=== PATIENT | male | born 1975 | race Caucasian/White ===

== ENCOUNTER 2017-09-30 05:26 | Day surgery (SDC) | payer OTHER ==
[2017-09-22 12:59] VITALS: BMI 38.0
[~2017-09-30] VITALS: Ht 177.8 cm; Wt 122.1 kg
[2017-09-30] MEDS ORDERED: LACTATED RINGER'S 1000ML 1,000 ML IV SCH (06:00)
[2017-09-30 06:24] VITALS: BP 157/77; PULSE 57; TEMP 37; O2SAT 96; Ht 177.8 cm; Wt 122.1 kg
--- NOTE | 2017-09-30 06:29 | History & Physical Bridge Note ---
H&P Re-Evaluation Bridge Note: I have examined the patient, reviewed the History & Physical and in the interval since the performance of the History & Physical I have noted the following changes of clinical significance: No changes noted
[2017-09-30] MEDS ORDERED: MIDAZOLAM HCL 1 MG/ML 2ML VIAL ONE (06:35)
[2017-09-30] MEDS ORDERED: PROPOFOL IV EMULSION 10 MG/ML 20 ML VIAL IV ONE (06:35)
[2017-09-30] MEDS ORDERED: ONDANSETRON INJ 2 MG/ML 2 ML VIAL ONE (06:35)
[2017-09-30] MEDS ORDERED: SUCCINYLCHOLINE CHLORIDE 20 MG/ML 10 ML VIAL IV ONE ×2 (06:35→07:49)
[2017-09-30] MEDS ORDERED: FENTANYL CITRATE INJ 50 MCG/1 ML 2 ML VIAL ONE ×2 (06:35→07:25)
[2017-09-30] MEDS ORDERED: DEXAMETHASONE SOD INJ 4 MG/ML VIAL ONE (06:35)
[2017-09-30] MEDS ORDERED: LIDOCAINE HCL 2% 2 ML VIAL (20MG/ML) ONE (06:35)
[2017-09-30] MEDS ORDERED: LIDOCAINE/EPINEPHRINE 1% 20 ML VIAL ONE (07:01)
[2017-09-30] MEDS ORDERED: ESMOLOL HCL 10 MG/ML 10 ML VIAL ONE (07:33)
[2017-09-30] MEDS ORDERED: EpINEphrine HCL INJ 1 MG/ML 5ML SYRINGE ONE (07:35)
[2017-09-30] MEDS ORDERED: GLYCOPYRROLATE INJ 0.2 MG/ML VIAL ONE (07:49)
[2017-09-30] MEDS ORDERED: ROCURONIUM BROMIDE 10 MG/ML 5 ML VIAL IV ONE ×2 (07:49)
[2017-09-30] MEDS ORDERED: NEOSTIGMINE METHYLSULFATE 5 MG/5 ML SYR ONE (07:49)
--- NOTE | 2017-09-30 08:28 | [facility] Operative Report ---
Operative Report Operative Date Sep 30, 2017. Pre-Operative Diagnosis Right vocal fold lesion, hoarseness. Post-Operative Diagnosis Same as preop. Procedure(s) Performed Direct Microlaryngoscopy with Biopsy of Right True Vocal Fold lesion Surgeon Dr. Mueller Manager Of Customer Billing Surgeon(s) None. Estimated Blood Loss 10 ML Findings 1. EXOPHYTIC MASS INVOLVING ANTERIOR 2/3 OF THE RIGHT TRUE VOCAL FOLD AND ANTERIOR COMMISSURE 2. 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 I attest to the content of the Intraoperative Record and any orders documented therein. Any exceptions are noted below.
[2017-09-30] MEDS ORDERED: ACETAMINOPHEN/HYDROCODONE ELIX 15 ML/CUP UDP PO PRN (08:30)
[2017-09-30] MEDS ORDERED: ATROPINE SULFATE 0.1 MG/ML 5ML SYR IV PRN (08:30)
[2017-09-30] MEDS ORDERED: FENTANYL CITRATE INJ 50 MCG/1 ML 2 ML VIAL IV PRN (08:30)
[2017-09-30] MEDS ORDERED: MEPERIDINE HCL 25 MG/ML CARP IV PRN (08:30)
[2017-09-30] MEDS ORDERED: LABETALOL HCL IV 5 MG/ML 20ML IV PRN (08:30)
[2017-09-30] MEDS ORDERED: ONDANSETRON INJ 2 MG/ML 2 ML VIAL IV PRN ×2 (08:30)
[2017-09-30] MEDS ORDERED: HYDROmorphone INJ 1 MG/ML SYR IV PRN (08:30)
[2017-09-30] MEDS ORDERED: EpHEDrine SULFATE INJ 50 MG/ML AMP IV PRN (08:30)
--- NOTE | 2017-09-30 08:30 | Discharge Instructions ---
Discharge Instructions Date of Service Sep 30, 2017. Admission Reason for Admission: Lesion Of Vocal Fold Discharge Discharge Diagnosis / Problem: SAME Discharge Goals Goal(s): Diagnostic testing Activity Recommendations Activity Limitations: as noted below ABSOLUTE VOICE REST FOR 3 DAYS . Current Hospital Diet Patient's current hospital diet: Regular Diet Discharge Diet Recommended Diet: Regular Diet Procedures Procedures Performed: Direct Microlaryngoscopy with Biopsy of Right True Vocal Fold lesion Pending Studies Studies pending at discharge: no Medical Emergencies . Who to Call and When: Medical Emergencies: If at any time you feel your situation is an emergency, please call 911 immediately. . Non-Emergent Contact Non-Emergency issues call your: Surgeon . . "Provider Documentation" section prepared by Philip Mueller. . VTE Core Measure Inpt VTE Proph given/why not?: SCD's
--- NOTE | 2017-09-30 08:47 | OPERATIVE REPORT ---
DATE OF OPERATION: 09/30/2017 PREOPERATIVE DIAGNOSIS: Right true vocal fold lesion. POSTOPERATIVE DIAGNOSIS: Right true vocal fold lesion. PROCEDURE: Direct microlaryngoscopy with biopsies of right true vocal fold. SURGEON: Dr. Mueller. ANESTHESIA: General endotracheal. ESTIMATED BLOOD LOSS: 10 mL FINDINGS: 1. Exophytic mass involving the right true vocal fold and anterior commissure. 2. Atypical squamous epithelium with possible infiltrative carcinoma on frozen section diagnosis for which they are deferring to permanent pathological specimens. COMPLICATIONS: None. INDICATIONS FOR THE PROCEDURE: The patient is a 42-year-old male with a [id number] smoking history, who quit smoking cigarettes but continues to chew tobacco and swallows his saliva, who has had a several-month history of progressive hoarseness. He was found on fiberoptic laryngoscopy in the office to have a bulky exophytic mass involving the anterior two-thirds of the right true vocal fold and possibly the anterior commissure. I recommended direct microlaryngoscopy with biopsy. He presents for the above-mentioned procedure on an outpatient elective basis. DETAILS OF PROCEDURE: After informed consent had been obtained from the patient, the patient was wheeled to the operating room and placed on the operating room table in supine position. Monitors were placed after induction of general endotracheal anesthesia with a size 6 endotracheal tube, the table was turned 90 degrees and a tooth guard was placed over the maxillary dentition. The operating microscope was used to inspect the oral cavity, oropharynx, hypopharynx and larynx. Of note, the exposure was somewhat difficult due to his prominent dentition as well as a mildly anterior larynx. The Lewy cortez was attached to the laryngoscope and was suspended from the Yousif stand. A 0-degree bear telescope was used to visualize the larynx under high powered magnification and photodocumentation of the lesion was obtained. Significant amount of anterior cricoid pressure was necessary to visualize the lesion. Straight and up cup forceps were then used to take multiple pieces of the exophytic mass and sent for frozen and permanent pathological assessment. Care was taken to preserve as much normal vocal fold mucosa as possible. A "debulking" of the mass was undertaken though to provide an improved airway as well as to perhaps improve his voice. 1:1000 topical epinephrine pledget was then placed over the larynx. The laryngoscope was then carefully withdrawn. Frozen section diagnosis was called back in and stated that there was atypical squamous epithelium with concern about infiltrative carcinoma but they could not confirm or deny carcinoma and are going to defer to permanent pathological specimens. Therefore, I made the decision to reinsert the laryngoscope and noted that the endotracheal tube had inadvertently come out of his larynx. The patient was bag masked with oral airway in place and a new 6 endotracheal tube was placed using a GlideScope. Using the GlideScope, it could be seen that there was some mild mass still involving the anterior commissure. Once again, a tooth guard was placed over the maxillary dentition and the operating microscope was inserted and used to inspect the larynx. The Lewy cortez was attached and suspended from the Robbins stand. Up cup forceps was used to take biopsies of the anterior commissure region, that was noted using the GlideScope. These were sent for permanent pathological assessment. There was no more abnormal mucosa, and therefore, enough biopsies were taken. Again, topical 1:1000 epinephrine pledget was placed over the larynx, and after allowing adequate time for hemostasis, the pledget was removed. An LTA was then administered. The laryngoscope was then carefully withdrawn. The maxillary tooth guard was removed. The oral cavity and oropharynx were suctioned. This marked the end of the case. The patient tolerated the procedure well and there were no apparent complications. All the instrumentation was removed from the patient. The patient was extubated and transferred to recovery room in stable condition. I attest to the content of the Intraoperative Record and any orders documented therein. Any exception s are noted below.
[2017-09-30 09:20] VITALS: BP 130/78; PULSE 63; O2SAT 93
--- NOTE | 2017-09-30 09:31 | Anesthesiology Progress Note ---
Anesthesia Post Op Note Date & Time Sep 30, 2017 at 09:31 Vital Signs Pain Intensity: 2 Vital Signs Past 12 Hours Date Time Temp Pulse Resp B/P (MAP) Pulse Ox O2 Delivery O2 Flow Rate FiO2 09/30/17 09:14 62 12 93 09/30/17 09:14 63 12 09/30/17 09:10 121/87 09/30/17 09:09 63 11 09/30/17 09:09 65 11 100 09/30/17 09:07 36.3 61 16 121/87 (94) 97 Oxymask 2 09/30/17 09:06 119/84 09/30/17 09:04 62 12 09/30/17 09:04 62 12 98 09/30/17 09:00 137/91 09/30/17 08:59 84 15 100 09/30/17 08:59 78 15 09/30/17 08:58 63 12 09/30/17 08:58 63 12 100 09/30/17 08:56 115/74 09/30/17 08:53 66 11 98 09/30/17 08:53 68 11 09/30/17 08:51 131/80 09/30/17 08:48 68 10 100 09/30/17 08:48 68 10 09/30/17 08:46 131/87 09/30/17 08:43 75 12 100 09/30/17 08:43 76 12 09/30/17 08:41 155/88 09/30/17 08:38 96 14 100 09/30/17 08:38 96 14 09/30/17 08:38 36.0 87 12 155/88 100 Oxymask 10 09/30/17 06:24 37.0 57 18 157/77 (103) 96 Room Air Notes Mental Status: alert / awake / arousable, participated in evaluation Pt Amnestic to Procedure: Yes Nausea / Vomiting: adequately controlled Pain: adequately controlled Airway Patency, RR, SpO2: stable & adequate BP & HR: stable & adequate Hydration State: stable & adequate Anesthetic Complications: no major complications apparent
[2017-09-30 09:50] VITALS: BP 130/78; PULSE 68; TEMP 36.7; O2SAT 95
[2017-09-30 10:20] VITALS: BP 137/81; PULSE 64; TEMP 36.5; O2SAT 97
== END 2017-09-30 10:20 | disposition home or self-care (01) ==
LOC: C.ACU 05:26
DX: J38.3 Other diseases of vocal cords (principal); R49.0 Dysphonia; Z87.891 Personal history of nicotine dependence

== ENCOUNTER 2018-01-21 08:53 | Emergency (ER) | payer OTHER ==
[~2018-01-21] VITALS: Ht 177.8 cm; Wt 122.5 kg
[~2018-01-21 08:53] MED LIST: HYDR-3126 PO; MECL1TAB42 PO
[2018-01-21 08:57] VITALS: TEMP 37.7; Ht 177.8 cm; Wt 122.5 kg
[2018-01-21] MEDS ORDERED: OXYC1CAP5 PO (09:14)
[2018-01-21] MEDS ORDERED: IBUP-1277 PO (09:14)
[2018-01-21] MEDS ORDERED: DRGTP12 TOP (09:14)
[2018-01-21] MEDS ORDERED: SODIUM CHLORIDE 0.9% 1000ML 1,000 ML IV STA (09:37)
--- NOTE | 2018-01-21 09:40 | EMERGENCY ROOM VISIT NOTE ---
History Report prepared by Jing: Sanjiv Krueger Under the Supervision of: Dr. Jesse Woodard M.D. First contact with patient: 09:31 Chief Complaint: THROAT PAIN/INJURY Stated Complaint: OTHER History of Present Illness The patient is a 43 year old male who presents to the Emergency Room with complaints of worsening swallowing difficulties that started 2 days ago. The patient is currently receiving radiation treatments for throat cancer. Per the patient's , the patient has not been able to eat for 2 days, and has not been able to drink much at all. The patient states that it hurts to talk. The patient was seen at Dr. Felix's office (radiation oncology) this morning and was scoped due to the patient's symptoms, and he was sent here due to concern about his airway, and the amount of swelling in his throat. There was concern about dehydration. Per the patient's , the patient has not been sleeping well at all recently. His last radiation treatment was yesterday morning. Source of History: patient, spouse/significant other Onset: 2 days ago Position: throat Symptom Intensity: can't eat and can hardly drink Quality: other (swallowing difficulties) Timing: worsening Note: Associated symptoms: Pain with swallowing. Swelling in throat. Not sleeping well. Review of Systems See HPI for pertinent positives & negatives. A total of 10 systems reviewed and were otherwise negative. Past Medical & Surgical Medical Problems: (1) Throat cancer Family History No pertinent family history Social History Smoking Status: Former Smoker Drug Use: none Marital Status: Housing Status: lives with roommate Current/Historical Medications Scheduled Fentanyl (Fentanyl), 12 MCG TOP Q3DAYS Meclizine Hcl (Meclizine Hcl), 1 TAB PO DIRECTED Scheduled PRN Hydroxyzine Hcl (Atarax), 1 TAB PO HS PRN for Sleep Ibuprofen (Advil), 200-600 MG PO Q4H PRN for Pain Oxycodone Hcl (Oxycodone Hcl), 5 MG PO Q4 PRN for Pain Allergies Coded Allergies: Tramadol (Verified Allergy, Unknown, RESP. DEPRESSION, 01/21/18) Physical Exam Vital Signs Date Time Temp Pulse Resp B/P (MAP) Pulse Ox O2 Delivery O2 Flow Rate FiO2 01/21/18 13:13 84 20 145/111 97 01/21/18 12:09 78 18 141/71 99 Room Air 01/21/18 11:54 79 01/21/18 11:33 78 20 167/102 98 Room Air 01/21/18 11:32 97 Room Air 01/21/18 10:59 85 18 149/86 99 Room Air 01/21/18 10:12 74 18 144/96 95 Room Air 01/21/18 08:57 37.7 74 18 173/106 98 Room Air 01/21/18 08:57 97 Room Air 01/21/18 08:57 99 Room Air Physical Exam GENERAL: Awake, alert, well-appearing, in no acute distress, has hot potato voice. HENT: Normocephalic, atraumatic. Unable to swallow own saliva. EYES: Normal conjunctiva. Sclera non-icteric. NECK: Supple. No nuchal rigidity. FROM. No JVD. RESPIRATORY: Clear to auscultation. No stridor on exam. CARDIAC: Regular rate, normal rhythm. Extremities warm and well perfused. Pulses equal. ABDOMEN: Soft, non-distended. No tenderness to palpation. No rebound or guarding. No masses. RECTAL: Deferred. MUSCULOSKELETAL: Chest examination reveals no tenderness. The back is symmetrical on inspection without obvious abnormality. There is no CVA tenderness to palpation. No joint edema. LOWER EXTREMITIES: Calves are equal size bilaterally and non-tender. No edema. No discoloration. NEURO: Normal sensorium. No sensory or motor deficits noted. SKIN: No rash or jaundice noted. Medical Decision & Procedures ER Provider Diagnostic Interpretation: Radiology results as stated below per my review and radiologist interpretation: CHEST ONE VIEW PORTABLE HISTORY: Sepsis COMPARISON: None. FINDINGS: The lungs are clear. Cardiac silhouette is normal in size. No pleural effusions. No pneumothorax. IMPRESSION: No acute process. Electronically signed by: Man Lynn M.D. 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 Several small polyps of the maxillary sinuses. Mastoids are clear. The oral and hypopharyngeal airways are patent. There are findings of mild edematous change of the epiglottis extending inferiorly to the glottic and vocal cord regions. At the level of the hyoid bone there is considerable heterogeneously enhancing soft tissue in the region of the vocal cords. The airway shows a high degree of narrowing. This may in part be due to the patient's stage of phonating, although radiation edematous change versus neoplastic change must be considered. Regardless, the airway is severely compromised. There are no erosive changes or destructive changes of the cartilaginous structures of the soft tissue neck. Subglottic region appears to be widely patent. There are several small reactive nodes cervical chains bilaterally. Bulky adenopathy is not appreciated. The region of soft tissue edematous or pathologic change in cross-section measures 3.1 x 2.7 cm. IMPRESSION: 1. Abnormal soft tissue and/or post radiation edematous change creating near occlusion of the airway at the level of the focal cords extending superiorly to the base of the epiglottis. 2. 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 3. Several small reactive cervical nodes bilaterally although bulky adenopathy is not appreciated. 4. The subglottic airway is patent. 5. Patient should be monitored closely for potential acute occlusion of the airway. This report was phoned to the emergency room The above report was generated using voice recognition software. It may contain grammatical, syntax or spelling errors. Electronically signed by: Miki Villalobos M.D. 01/21/2018 10:55 AM Dictated Date/Time: 01/21/2018 10:44 AM Laboratory Results 01/21/18 10:00 Red Blood Count 5.00, Mean Corpuscular Volume 88.0, Mean Corpuscular Hemoglobin 30.8, Mean Corpuscular Hemoglobin Concent 35.0, Mean Platelet Volume 9.9, Neutrophils (%) (Auto) 85.6, Lymphocytes (%) (Auto) 6.5, Monocytes (%) (Auto) 6.6, Eosinophils (%) (Auto) 0.9, Basophils (%) (Auto) 0.2, Neutrophils # (Auto) 9.86, Lymphocytes # (Auto) 0.75, Monocytes # (Auto) 0.76, Eosinophils # (Auto) 0.10, Basophils # (Auto) 0.02 01/21/18 09:21 Test 01/21/18 09:21 01/21/18 09:31 01/21/18 09:51 01/21/18 10:00 Anion Gap 5.0 mmol/L (3-11) Est Creatinine Clear Calc Drug Dose 110.0 ml/min Estimated GFR () 90.2 Estimated GFR (Non- 77.8 BUN/Creatinine Ratio 13.7 (10-20) Calcium Level 9.0 mg/dl (8.5-10.1) Total Bilirubin 0.6 mg/dl (0.2-1) Aspartate Amino Transf (AST/SGOT) 23 U/L (15-37) Alanine Aminotransferase (ALT/SGPT) 44 U/L (12-78) Alkaline Phosphatase 101 U/L (45-117) Total Creatine Kinase 66 U/L (39-308) Creatine Kinase MB < 0.5 ng/ml (0.5-3.6) Troponin I < 0.015 ng/ml (0-0.045) Total Protein 8.1 gm/dl (6.4-8.2) Albumin 3.9 gm/dl (3.4-5.0) Globulin 4.2 gm/dl (2.5-4.0) Albumin/Globulin Ratio 0.9 (0.9-2) Chemistry Specimen Hemolysis Creatine Kinase MB Ratio (0-3.0) Bedside Lactic Acid Venous 1.14 mmol/L (0.90-1.70) White Blood Count 11.51 K/uL (4.8-10.8) Red Blood Count 5.00 M/uL (4.7-6.1) Hemoglobin 15.4 g/dL (14.0-18.0) Hematocrit 44.0 % (42-52) Mean Corpuscular Volume 88.0 fL (80-100) Mean Corpuscular Hemoglobin 30.8 pg (25-34) Mean Corpuscular Hemoglobin Concent 35.0 g/dl (32-36) Platelet Count 271 K/uL (130-400) Mean Platelet Volume 9.9 fL (7.4-10.4) Neutrophils (%) (Auto) 85.6 % Lymphocytes (%) (Auto) 6.5 % Monocytes (%) (Auto) 6.6 % Eosinophils (%) (Auto) 0.9 % Basophils (%) (Auto) 0.2 % Neutrophils # (Auto) 9.86 K/uL (1.4-6.5) Lymphocytes # (Auto) 0.75 K/uL (1.2-3.4) Monocytes # (Auto) 0.76 K/uL (0.11-0.59) Eosinophils # (Auto) 0.10 K/uL (0-0.5) Basophils # (Auto) 0.02 K/uL (0-0.2) RDW Standard Deviation 42.3 fL (36.4-46.3) RDW Coefficient of Variation 13.2 % (11.5-14.5) Immature Granulocyte % (Auto) 0.2 % Immature Granulocyte # (Auto) 0.02 K/uL (0.00-0.02) Prothrombin Time 10.6 SECONDS (9.0-12.0) Prothromb Time International Ratio 1.0 (0.9-1.1) Activated Partial Thromboplast Time 25.9 SECONDS (21.0-31.0) Partial Thromboplastin Ratio 1.0 Test 01/21/18 11:15 Urine Color YELLOW Urine Appearance CLEAR (CLEAR) Urine pH 8.0 (4.5-7.5) Urine Specific Letcher > 1.045 (1.000-1.030) Urine Protein NEG (NEG) Urine Glucose (UA) NEG (NEG) Urine Ketones TRACE (NEG) Urine Occult Blood NEG (NEG) Urine Nitrite NEG (NEG) Urine Bilirubin NEG (NEG) Urine Urobilinogen NEG (NEG) Urine Leukocyte Esterase NEG (NEG) Urine WBC (Auto) 0 /hpf (0-5) Urine RBC (Auto) 0-4 /hpf (0-4) Urine Hyaline Casts (Auto) 0 /lpf (0-5) Urine Epithelial Cells (Auto) 0-5 /lpf (0-5) Urine Bacteria (Auto) NEG (NEG) Labs reviewed by ED physician. Medications Administered Medications (Trade) Dose Ordered Sig/Angie Route Start Time Stop Time Status Last Admin Dose Admin Sodium Chloride 1,000 ml @ 999 mls/hr Q1H1M STAT IV 01/21/18 09:37 01/21/18 10:37 DC 01/21/18 10:00 999 MLS/HR Dexamethasone Sodium Phosphate (Dexamethasone Inj Pf) 10 mg STK-MED ONCE .ROUTE 01/21/18 11:09 01/21/18 11:10 DC 01/21/18 11:16 10 MG ECG Per My Interpretation Indication: other (cancer history, sepsis) Rate (beats per minute): 81 Rhythm: normal sinus Findings: other (no st elevation or depression, normal axis) ED Course 0932: Past medical records reviewed. The patient was evaluated in room A3. A complete history and physical examination was performed. 0937: NSS 1000 ml @ 999 mls/hr IV. 1057: Dexamethasone Sodium Phosphate 10mg/Syringe 2.5 ml @ 1 mls/min IV. 1058: I discussed the patient with - [facility] [place] anesthesia. 1115: I discussed the patient with Dr. Candelaria Hutson arturo ENT - he will come to evaluate the patient. 1117: I discussed the patient with Dr. Kamar Hutson [facility] electrical/instrument technician. 1253: Upon reexamination the patient is resting. Dr. Gaona just came in and scoped the patient. I discussed results and treatment plan with the patient. The patient verbalizes agreement and understanding. The patient is ready for discharge. Medical Decision Differential diagnosis: Etiologies such as sepsis, UTI, pneumonia, metabolic, electrolyte abnormalities , cardiac sources, intracerebral event, toxicologic, neurologic, as well as others were entertained. This is a 43-year-old male who presents the emergency department complaining of difficulty breathing. The patient feels his throat was closing off. He is currently being treated with radiation for a laryngeal mass. An IV was established and the patient was sent for CAT scan of the neck. Based on the CAT scan he was given 10 of Decadron IV. I did discuss the case with the on- call ear nose throat doctor who was kind enough to come in and see the patient. He was also discussed with anesthesia. After the Decadron the patient was markedly improved in his symptoms and we feel that he can be safely discharged home however I stressed the need to return if his symptoms worsen. The patient was also written for Medrol Dosepak by his oncologist which he is going to continue at home. Patient and are in agreement with the treatment plan. Medication Reconcilliation Current Medication List: was personally reviewed by me Blood Pressure Screening Patient's blood pressure: Elevated blood pressure Blood pressure disposition: Referred to PCP Consults Time Called: 1055 Consulting Physician: Dr. Luis CADE anesthesia Returned Call: 1058 I discussed the patient with Dr. Luis CADE anesthesia. Additional Consults: Time Called: 1113 Consulted Physician: Dr. Candelaria Lau ENT Returned Call: 1115 Additional Comments: I discussed the patient with Dr. Candelaria Lau ENT - he will come to evaluate the patient. Time Called: 1113 Consulted Physician: Dr. Kamar OBNADO electrical/instrument technician Returned Call: 1117 Additional Comments: I discussed the patient with Dr. Kamar OBANDO electrical/instrument technician. Impression Primary Impression: Laryngeal mass Scribe Attestation The scribe's documentation has been prepared under my direction and personally reviewed by me in its entirety. I confirm that the note above accurately reflects all work, treatment, procedures, and medical decision making performed by me. Departure Information Dispostion Home / Self-Care Referrals No Doctor, Assigned (PCP) Philip Mueller, Precious Madrid, Mildred Holland M.D. Forms HOME CARE DOCUMENTATION FORM, IMPORTANT VISIT INFORMATION, WORK / SCHOOL INSTRUCTIONS Patient Instructions My [facility] Additional Instructions Follow up with DR Mueller's office Follow up with DR Felix's office Return if you are unable to breathe or swallow You have been examined and treated today on an emergency basis only. This is not a substitute for, or an effort to provide, complete comprehensive medical care. It is impossible to recognize and treat all injuries or illnesses in a single emergency department visit. It is therefore important that you follow up closely with Dr Velez. Call as soon as possible for an appointment. Thank you for your time and consideration. I look forward to speaking with you again soon. Please don't hesitate to call us if you have any questions.
[2018-01-21] MEDS ORDERED: OPTIRAY 320 IV PRN (09:45)
[2018-01-21 10:00] LABS: ALBUMIN 3.9 gm/dl (3.4-5.0); ALT/SGPT 44 U/L (12-78); BLOOD UREA NITROGEN 16 mg/dl (7-18); CARBON DIOXIDE 29 mmol/L (21-32); CREATININE 1.16 mg/dl (0.60-1.40); GLUCOSE 93 mg/dl (70-99); POTASSIUM 4.5 mmol/L (3.5-5.1); SODIUM 136 mmol/L (136-145)
[2018-01-21 10:03] LABS: ALKALINE PHOSPHATASE 101 U/L (45-117); AST/SGOT 23 U/L (15-37); CKMB < 0.5 ng/ml (0.5-3.6); TOTAL PROTEIN 8.1 gm/dl (6.4-8.2)
--- NOTE | 2018-01-21 10:03 | DIAGNOSTIC IMAGING REPORT ---
CHEST ONE VIEW PORTABLE HISTORY: Sepsis COMPARISON: None. FINDINGS: The lungs are clear. Cardiac silhouette is normal in size. No pleural effusions. No pneumothorax. IMPRESSION: No acute process. Electronically signed by: Man Lynn M.D. 01/21/2018 10:02 AM Dictated Date/Time: 01/21/2018 9:58 AM
[2018-01-21 10:08] LABS: BASO % 0.2 %; BASO ABS # 0.02 K/uL (0-0.2); EOS % 0.9 %; HEMOGLOBIN 15.4 g/dL (14.0-18.0); IG# 0.02 K/uL (0.00-0.02); LYMPH % 6.5 %; LYMPH ABS # 0.75 K/uL (1.2-3.4); MEAN CORPUSCULAR HEMOGLOBIN 30.8 pg (25-34); MEAN PLATELET VOLUME 9.9 fL (7.4-10.4); MONO % 6.6 %; MONO ABS # 0.76 K/uL (0.11-0.59); NEUT % 85.6 %; NEUT ABS # 9.86 K/uL (1.4-6.5); PLATELET COUNT 271 K/uL (130-400); RED CELL DISTRIBUTION WIDTH CV 13.2 % (11.5-14.5); RED CELL DISTRIBUTION WIDTH SD 42.3 fL (36.4-46.3); WHITE BLOOD COUNT 11.51 K/uL (4.8-10.8)
[2018-01-21 10:22] LABS: PTT PATIENT 25.9 SECONDS (21.0-31.0)
--- NOTE | 2018-01-21 10:56 | DIAGNOSTIC IMAGING REPORT ---
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 Several small polyps of the maxillary sinuses. Mastoids are clear. The oral and hypopharyngeal airways are patent. There are findings of mild edematous change of the epiglottis extending inferiorly to the glottic and vocal cord regions. At the level of the hyoid bone there is considerable heterogeneously enhancing soft tissue in the region of the vocal cords. The airway shows a high degree of narrowing. This may in part be due to the patient's stage of phonating, although radiation edematous change versus neoplastic change must be considered. Regardless, the airway is severely compromised. There are no erosive changes or destructive changes of the cartilaginous structures of the soft tissue neck. Subglottic region appears to be widely patent. There are several small reactive nodes cervical chains bilaterally. Bulky adenopathy is not appreciated. The region of soft tissue edematous or pathologic change in cross-section measures 3.1 x 2.7 cm. IMPRESSION: 1. Abnormal soft tissue and/or post radiation edematous change creating near occlusion of the airway at the level of the focal cords extending superiorly to the base of the epiglottis. 2. 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 3. Several small reactive cervical nodes bilaterally although bulky adenopathy is not appreciated. 4. The subglottic airway is patent. 5. Patient should be monitored closely for potential acute occlusion of the airway. This report was phoned to the emergency room The above report was generated using voice recognition software. It may contain grammatical, syntax or spelling errors. Electronically signed by: Miki Villalobos M.D. 01/21/2018 10:55 AM Dictated Date/Time: 01/21/2018 10:44 AM
[2018-01-21] MEDS ORDERED: DEXAMETHASONE INJ 10 MG in SYRINGE 0 ML IV STA (10:57)
[2018-01-21] MEDS ORDERED: DEXAMETHASONE **PF** INJ 10 MG/ML VIAL ONE (11:09)
[2018-01-21 11:32] VITALS: O2SAT 97
[2018-01-21 13:13] VITALS: BP 145/111; PULSE 84; O2SAT 97
--- NOTE | 2018-01-21 15:44 | ENT CONSULTATION ---
DATE OF CONSULTATION: 01/21/2018 PERSON REQUESTING CONSULTATION: Emergency Department physician, Dr. Woodard. INDICATION: Airway compromise with difficulty swallowing. HISTORY OF PRESENT ILLNESS: This is a 43-year-old man who has undergone 13 radiation treatments for laryngeal carcinoma diagnosed by Dr. Philip Mueller. Over the last few days, the patient had noticed increased difficulty in swallowing and today presented to the Emergency Department with difficulty talking and a little bit more difficulty breathing. He was assessed by Dr. Woodard and was given Decadron. This was provided after he had a CT scan of the neck, which showed massive edema primarily involving the false vocal cords and the supraglottic larynx with minimal involvement of the epiglottis. I reviewed the images and the radiologist's report, and I concur. I interviewed the patient in module A1 and his was present. Both the patient and his said he was doing much better, 2 hours after the Decadron was given by Dr. Woodard. Dr. Woodard was also present when I was talking to the patient, and Dr. Woodard described that his breathing and speaking were dramatically improved. The main reason I was called was to assess his airway to see if there was any need for emergent airway intervention versus admission for observation versus an opinion on whether or not the patient would do well as a continued outpatient. As far as past medical history and review of systems: they are all well documented in the Emergency Department note. I will not contribute to chart rupesh. In general, the patient was breathing without difficulty. There was no stridor. I used the flexible laryngoscope through the right nostril. He has a severely deviated septum to the left side. There were no abnormalities of the nasopharynx or the oropharynx. He had minimal edema of the false cord on the left side. He had full vocal cord mobility. I was able to see down about 5 tracheal rings and there was no obstruction of the subglottis. He had adequate glottic chink. ASSESSMENT AND PLAN: This patient has had an unfortunate amount of edema during his radiation therapy for treatment of laryngeal carcinoma. This is not uncommon. He will probably require a radiation holiday for several sessions. I will leave this up to radiation therapy. I conveyed this recommendation to Dr. Woodard. I also assured that the patient could safely go home on a [employer]. There was an opportunity for questions and answers. MTDD
== END 2018-01-21 13:15 | disposition home or self-care (01) ==
LOC: EDBD 08:53 → C.EDA 08:54
DX: C32.9 Malignant neoplasm of larynx, unspecified (principal); J34.2 Deviated nasal septum; Z87.891 Personal history of nicotine dependence; Z88.5 Allergy status to narcotic agent

== ENCOUNTER 2018-02-21 14:23 | Emergency (ER) | payer OTHER ==
[~2018-02-21] VITALS: Ht 177.8 cm; Wt 125.0 kg
[~2018-02-21 14:23] MED LIST changes: +DRGTP25 TOP; +IBUP-1277 PO; +OXYC1CAP5 PO; +PRED10TA PO
[2018-02-21 14:26] VITALS: Ht 177.8 cm; Wt 125.0 kg
[2018-02-21 14:38] VITALS: O2SAT 98
[2018-02-21] MEDS ORDERED: DEXAMETHASONE SOD INJ 4 MG/ML VIAL IV STA (15:00)
[2018-02-21] MEDS ORDERED: SODIUM CHLORIDE 0.9% 500ML 500 ML IV STA (15:00)
[2018-02-21] MEDS ORDERED: LORAZEPAM INJ 1 MG in SYRINGE 0.5 ML IV STA (15:13)
[2018-02-21] MEDS ORDERED: RACEPINEPHRINE 2.25% NEBU SOLN 0.5 ML VIAL INH STA (15:13)
[2018-02-21] MEDS ORDERED: LORAZEPAM 2 MG/ML 1 ML VIAL ONE (15:18)
[2018-02-21 15:41] LABS: BASO % 0.1 %; BASO ABS # 0.01 K/uL (0-0.2); EOS % 0.6 %; EOS ABS # 0.08 K/uL (0-0.5); HEMATOCRIT 43.8 % (42-52); HEMOGLOBIN 14.6 g/dL (14.0-18.0); IG# 0.07 K/uL (0.00-0.02); LYMPH % 2.4 %; LYMPH ABS # 0.32 K/uL (1.2-3.4); MEAN CORPUSCULAR HEMOGLOBIN 29.7 pg (25-34); MEAN CORPUSCULAR HGB CONC 33.3 g/dl (32-36); MEAN PLATELET VOLUME 9.6 fL (7.4-10.4); MONO ABS # 0.94 K/uL (0.11-0.59); NEUT % 89.4 %; NEUT ABS # 12.07 K/uL (1.4-6.5); PLATELET COUNT 263 K/uL (130-400); RED CELL DISTRIBUTION WIDTH CV 14.3 % (11.5-14.5); RED CELL DISTRIBUTION WIDTH SD 46.6 fL (36.4-46.3); WHITE BLOOD COUNT 13.49 K/uL (4.8-10.8)
--- NOTE | 2018-02-21 15:55 | DIAGNOSTIC IMAGING REPORT ---
CHEST 1 VW FRONT-NOT PORTABLE CLINICAL HISTORY: Difficulty breathing. Shortness of breath. COMPARISON STUDY: 01/21/2018 FINDINGS: The cardiac and mediastinal contours are normal. There is no evidence of focal pulmonary consolidation. There is no evidence of failure. No pleural effusions are visualized.[ IMPRESSION: No active disease in the chest. Electronically signed by: Andrei Osorio M.D. 02/21/2018 3:54 PM Dictated Date/Time: 02/21/2018 3:54 PM
--- NOTE | 2018-02-21 15:55 | DIAGNOSTIC IMAGING REPORT ---
SOFT TISSUE NECK CLINICAL HISTORY: Difficulty breathing. History of laryngeal radiation. COMPARISON STUDY: CT scan dated 01/21/2018 FINDINGS: No epiglottic abnormalities are visualized. The retropharyngeal soft tissues are the upper limits of normal in thickness. The airway appears patent. IMPRESSION: 1. No conventional radiographic evidence of significant airway narrowing 2. Normal appearing epiglottis Electronically signed by: Andrei Osorio M.D. 02/21/2018 3:53 PM Dictated Date/Time: 02/21/2018 3:51 PM
--- NOTE | 2018-02-21 16:15 | EMERGENCY ROOM VISIT NOTE ---
History First contact with patient: 14:45 Chief Complaint: RESPIRATORY PROBLEMS Stated Complaint: NUMBNESS, TROUBLE BREATHING Nursing Triage Summary: c/o SOB and not feeling right pt being tx for throat cancer and recieved radiation no resp distress pt stated he had something similar and had to take a break from radiation History of Present Illness The patient is a 43 year old male who presents to the Emergency Room with complaints of shortness of breath and feeling like his airway was closing that started this morning. The patient is undergoing radiation for laryngeal cancer. He had his last treatment 3 days ago. He complains of moderate discomfort in his throat. No pain in his chest. He is feeling sweaty and anxious. The patient typically takes prednisone 10 mg 3 times daily. He took an extra one this morning hoping that it would help with his symptoms. He did not see any improvement. He denies any leg or calf pain. Review of Systems 10 system review performed and negative unless noted in HPI or below Past Medical/Surgical History Medical Problems: (1) Throat cancer Family History No pertinent family history Social History Smoking Status: Former Smoker Drug Use: none Marital Status: Housing Status: lives with roommate Current/Historical Medications Scheduled Guaifenesin/Dextromethorphan (Robitussin-Dm Syrup), 5 ML PO Q6H Prednisone Tab (Prednisone), 10 MG PO TID Scheduled PRN Fentanyl (Fentanyl), 25 MCG TOP [id number] PRN for Severe Pain Hydroxyzine Hcl (Atarax), 50 MG PO HS PRN for Sleep Ibuprofen (Advil), 200-600 MG PO Q4H PRN for Pain Meclizine Hcl (Meclizine Hcl), 25 MG PO UD PRN for Dizziness or Vertigo Oxycodone Hcl (Oxycodone Hcl), 5 MG PO Q4H PRN for Pain Physical Exam Vital Signs Date Time Temp Pulse Resp B/P (MAP) Pulse Ox O2 Delivery O2 Flow Rate FiO2 02/21/18 19:31 71 20 145/78 96 02/21/18 18:35 67 24 154/92 98 Room Air 02/21/18 18:15 72 20 157/90 95 Room Air 02/21/18 17:41 69 02/21/18 17:30 68 24 178/92 97 Room Air 02/21/18 16:23 72 16 95 Room Air 02/21/18 16:15 73 19 183/90 93 Room Air 02/21/18 14:38 98 02/21/18 14:26 36.8 68 18 197/118 98 Physical Exam VITALS: Vitals are noted on the nurse's note and reviewed by myself. Vital signs stable. GENERAL: 43-year-old male, mildly anxious and sweaty and appears, SKIN: The skin was moist HEAD: Normocephalic atraumatic. EARS: External auditory canals clear, tympanic membranes pearly baca without erythema or effusion bilaterally. EYES: Pupils equal round and reactive to light and accommodation. Conjunctivae without injection, sclerae without icterus. Extraocular movements intact. NOSE: Patent, turbinates without inflammation or discharge. No sinus tenderness. MOUTH: Mucous membranes slightly dry. Tonsils are not enlarged. Pharynx without erythema or exudate. Uvula midline. Airway patent. Tongue does not deviate. NECK: Supple without nuchal rigidity. No lymphadenopathy. Cervical spine is nontender. No JVD.Questionable mild stridor HEART: Regular rate and rhythm without murmurs gallops or rubs. LUNGS: Clear to auscultation bilaterally without wheezes, rales or rhonchi. No accessory muscle use. ABDOMEN: Positive bowel sounds x 4.Soft, nontender, without organomegaly. MUSCULOSKELETAL: No muscle atrophy, erythema, or edema noted. Strength 5/5 throughout. NEURO: Patient was alert and oriented to person place and time. Normal sensation to touch. No focal neurological deficits. Medical Decision & Procedures ER Provider Diagnostic Interpretation: X-ray soft tissue neck and chest x-ray IMPRESSION: No active disease in the chest. Electronically signed by: Andrei Osorio M.D. 02/21/2018 3:54 PM Dictated Date/Time: 02/21/2018 3:54 PM IMPRESSION: 1. No conventional radiographic evidence of significant airway narrowing 2. Normal appearing epiglottis Electronically signed by: Andrei Osorio M.D. 02/21/2018 3:53 PM Dictated Date/Time: 02/21/2018 3:51 PM Laboratory Results 02/21/18 15:25 Red Blood Count 4.92, Mean Corpuscular Volume 89.0, Mean Corpuscular Hemoglobin 29.7, Mean Corpuscular Hemoglobin Concent 33.3, Mean Platelet Volume 9.6, Neutrophils (%) (Auto) 89.4, Lymphocytes (%) (Auto) 2.4, Monocytes (%) (Auto) 7.0, Eosinophils (%) (Auto) 0.6, Basophils (%) (Auto) 0.1, Neutrophils # (Auto) 12.07, Lymphocytes # (Auto) 0.32, Monocytes # (Auto) 0.94, Eosinophils # (Auto) 0.08, Basophils # (Auto) 0.01 02/21/18 15:25 Test 02/21/18 15:25 White Blood Count 13.49 K/uL (4.8-10.8) Red Blood Count 4.92 M/uL (4.7-6.1) Hemoglobin 14.6 g/dL (14.0-18.0) Hematocrit 43.8 % (42-52) Mean Corpuscular Volume 89.0 fL (80-100) Mean Corpuscular Hemoglobin 29.7 pg (25-34) Mean Corpuscular Hemoglobin Concent 33.3 g/dl (32-36) Platelet Count 263 K/uL (130-400) Mean Platelet Volume 9.6 fL (7.4-10.4) Neutrophils (%) (Auto) 89.4 % Lymphocytes (%) (Auto) 2.4 % Monocytes (%) (Auto) 7.0 % Eosinophils (%) (Auto) 0.6 % Basophils (%) (Auto) 0.1 % Neutrophils # (Auto) 12.07 K/uL (1.4-6.5) Lymphocytes # (Auto) 0.32 K/uL (1.2-3.4) Monocytes # (Auto) 0.94 K/uL (0.11-0.59) Eosinophils # (Auto) 0.08 K/uL (0-0.5) Basophils # (Auto) 0.01 K/uL (0-0.2) RDW Standard Deviation 46.6 fL (36.4-46.3) RDW Coefficient of Variation 14.3 % (11.5-14.5) Immature Granulocyte % (Auto) 0.5 % Immature Granulocyte # (Auto) 0.07 K/uL (0.00-0.02) Anion Gap 7.0 mmol/L (3-11) Est Creatinine Clear Calc Drug Dose 129.0 ml/min Estimated GFR () 107.9 Estimated GFR (Non- 93.1 BUN/Creatinine Ratio 16.8 (10-20) Calcium Level 9.0 mg/dl (8.5-10.1) Medications Administered Medications (Trade) Dose Ordered Sig/Angie Route Start Time Stop Time Status Last Admin Dose Admin Dexamethasone Sodium Phosphate (Decadron Inj) 10 mg NOW STAT IV 02/21/18 15:00 02/21/18 15:01 DC 02/21/18 15:35 10 MG Sodium Chloride 500 ml @ 999 mls/hr Q31M STAT IV 02/21/18 15:00 02/21/18 15:30 DC 02/21/18 15:35 999 MLS/HR Racepinephrine (Raccemic Epinephrine 2.25% 0.5ML Neb) 0.5 ml NOW STAT INH 02/21/18 15:13 02/21/18 15:14 DC 02/21/18 15:52 0.5 ML Lorazepam 1 mg/ Syringe 1 ml @ 0.5 mls/min NOW STAT IV 02/21/18 15:13 02/21/18 15:14 DC 02/21/18 15:35 0.5 MLS/MIN Lidocaine HCl (Afrin W/ Lidocaine 4%) 4 ml NOW STAT EXT 02/21/18 17:24 02/21/18 17:25 DC 02/21/18 17:30 4 ML Guaifenesin/ Dextromethorphan (Robitussin-Dm Syrup) 5 ml NOW ONCE PO 02/21/18 19:15 02/21/18 19:16 DC 02/21/18 19:24 5 ML ECG Per My Interpretation Indication: SOB/dyspnea Rate (beats per minute): 60 Change: no significant change ED Course Patient was seen and examined Vital signs including blood pressure were reviewed medications list was verified with patient Labs were obtained, and a saline lock was established Patient was medicated with Decadron 10 mg IV. He was given a nebulizer treatment of racemic epinephrine. Imaging was performed and reviewed Upon reassessment, the patient was feeling no better. The case was discussed with my supervising physician who also evaluated the patient The case was then discussed with Dr. Gaona and Dr. Nicole respectively. The both agreed to evaluate the patient Dr. Gaona performed a bedside laryngoscope. He did not notice any significant swelling. I discussed disposition options with the patient and the hospitalist present. He was comfortable being discharged home. He was given 1 dose of guaifenesin prior to discharge. I reviewed discharge instructions the patient. They voiced understanding and had no further questions. Medical Decision Differential diagnosis: Airway compromise, inflammation from radiation, anxiety , pulmonary embolus, pneumonia, pneumothorax, epiglottitis, This patient is a 43-year-old male, history of laryngeal cancer currently undergoing radiation therapy, that presented to the emergency department with difficulty breathing and feeling like his airway was closing. On exam, he had mild stridor. His oxygen saturation was stable. The patient was medicated with racemic epinephrine and Decadron. Approximately 1 hour later, the patient had no improvement. He thought that the racemic epinephrine dimas and made the situation worse. The case was discussed with on-call ENT and the hospitalist service. The patient was evaluated at the bedside by Dr. Gaona who performed a bedside laryngoscope. Please see his note for details. There is no significant swelling of the airway noted. He felt that the patient was stable to be discharged home on his current dose of prednisone. He also felt that some of the patient's symptoms are related to mucus buildup. He recommended a mucolytic. The patient was started on guaifenesin. He will continue his prednisone. He will follow-up closely with ENT as scheduled. The patient felt comfortable with this plan. He also agrees to return immediately with any new or worsening symptoms. This chart was completed in part utilizing [employer] Speech Voice Recognition software. Attempts were made to minimize the grammatical errors, random word insertions, pronoun errors and incomplete sentences. Any formal questions or concerns about the content, text or information contained within the body of this dictation should be directly addressed to the provider for clarification. Medication Reconcilliation Current Medication List: was personally reviewed by me Blood Pressure Screening Patient's blood pressure: Elevated blood pressure Blood pressure disposition: Elevated BP felt to be situational Consults Consulting Physician: Dr. Gaona Additional Consults: Consulted Physician: Dr. Nicole Impression Primary Impression: Shortness of breath Departure Information Dispostion Home / Self-Care Condition GOOD Prescriptions Guaifenesin/Dextromethorphan (Robitussin-Dm Syrup) 120 Ml Syrp 5 ML PO Q6H, #1 BTL Prov: Yenny Willson PA-C 02/21/18 Referrals Tomy Clements M.D. (PCP) Patient Instructions My [facility] Additional Instructions Please continue prednisone as prescribed Please take Robitussin DM 5 mL's every 4-6 hours as needed please follow-up with Dr. Mueller as scheduled Please do not hesitate to return to the emergency department with any new, worsening or concerning symptoms
[2018-02-21 16:23] VITALS: PULSE 72; O2SAT 95
[2018-02-21] MEDS ORDERED: LIDOCAINE 4% W/AFRIN NASAL SOLN 4ML EXT STA (17:24)
[2018-02-21] MEDS ORDERED: GUAIFENESIN 600 MG TABCR PO STA (18:49)
--- NOTE | 2018-02-21 18:51 | Medical Consult ---
Consultation Date of Consultation: Feb 21, 2018. Attending Physician: Dr. Patricio Gaona (ENT) I was asked to see this patient by Reagan Willson for evaluation of his airway. Reason for Consultation: Airway distress. History of Present Illness This patient is familiar to me, although he is Dr. Mueller's patient. I saw him in the [facility] ED about one month ago when he was about 3 weeks into his radiation therapy for laryngeal carcinoma. He had to take a radiation holiday d /t mucositis, but after I scoped him in the ED, he was found not to need to be admitted. He completed full course Radiation Therapy on 02/17/18, and woke up today with increased mucous, difficulty swallowing, and a sensation of difficulty breathing , and increased hoarseness. He doesn't think he has a cold Past Medical/Surgical History Medical Problems: (1) Laryngeal mass Status: Acute Family History No pertinent family history Social History Smoking Status: Former Smoker Drug Use: none Marital Status: Housing Status: lives with roommate Allergies Coded Allergies: Tramadol (Verified Allergy, Unknown, RESP. DEPRESSION, 01/21/18) Physical Exam Date Time Temp Pulse Resp B/P (MAP) Pulse Ox O2 Delivery O2 Flow Rate FiO2 02/21/18 18:15 72 20 157/90 95 Room Air 02/21/18 17:41 69 02/21/18 17:30 68 24 178/92 97 Room Air 02/21/18 16:23 72 16 95 Room Air 02/21/18 16:15 73 19 183/90 93 Room Air 02/21/18 14:38 98 02/21/18 14:26 36.8 68 18 197/118 98 Before I examined him in module B-1, I saw him walking back from the bathroom in [facility] and with no stridor. His was in attendance. He was hoarse. He was alert and cooperative. I performed flexible fiberoptic laryngoscopy. He had increase mucous. His vocal cords were completely mobile, erythematous, and there was no mass. Supraglottic area and subglottis were clear. Laboratory Results Last 24 Hours Test 02/21/18 15:25 White Blood Count 13.49 K/uL Red Blood Count 4.92 M/uL Hemoglobin 14.6 g/dL Hematocrit 43.8 % Mean Corpuscular Volume 89.0 fL Mean Corpuscular Hemoglobin 29.7 pg Mean Corpuscular Hemoglobin Concent 33.3 g/dl Platelet Count 263 K/uL Mean Platelet Volume 9.6 fL Neutrophils (%) (Auto) 89.4 % Lymphocytes (%) (Auto) 2.4 % Monocytes (%) (Auto) 7.0 % Eosinophils (%) (Auto) 0.6 % Basophils (%) (Auto) 0.1 % Neutrophils # (Auto) 12.07 K/uL Lymphocytes # (Auto) 0.32 K/uL Monocytes # (Auto) 0.94 K/uL Eosinophils # (Auto) 0.08 K/uL Basophils # (Auto) 0.01 K/uL RDW Standard Deviation 46.6 fL RDW Coefficient of Variation 14.3 % Immature Granulocyte % (Auto) 0.5 % Immature Granulocyte # (Auto) 0.07 K/uL Sodium Level 137 mmol/L Potassium Level mmol/L Chloride Level 103 mmol/L Carbon Dioxide Level 28 mmol/L Anion Gap 7.0 mmol/L Blood Urea Nitrogen 17 mg/dl Creatinine 1.00 mg/dl Est Creatinine Clear Calc Drug Dose 129.0 ml/min Estimated GFR () 107.9 Estimated GFR (Non- 93.1 BUN/Creatinine Ratio 16.8 Random Glucose 97 mg/dl Calcium Level 9.0 mg/dl Assessment & Plan Patient has a mucositis, and needs a mucolytic. He should remain on oral steroids as well. He should refrain from throat clearing. I discussed his care with Maddy Collier. From a clinical viewpoint, he is safe to go home. However, given that this is his second ED presentation for this, it is not unreasonable to admit him for overnight observation. He may f/u with Drs. Mueller and Isidro. Additional Copies To Philip Mueller MD; Nils Felix MD
[2018-02-21] MEDS ORDERED: GUAIFENESIN/DEXTROM SYRUP 100MG/10MG 5ML UDC PO ONE (19:15)
[2018-02-21] MEDS ORDERED: RBTDMUDL5 PO (19:22)
[2018-02-21 19:31] VITALS: BP 145/78; PULSE 71; O2SAT 96
--- NOTE | 2018-02-21 20:53 | Medical Consult ---
Consultation Date of Consultation: Feb 21, 2018. Attending Physician: Yenny DIGGS Reason for Consultation: Possible admission to hospital History of Present Illness 43-year-old man with laryngeal cancer diagnosed November 2017 presented to the ER with reports of shortness of breath and feeling that his airway was closing which started this morning. The patient has just finished radiation treatment for laryngeal cancer finishing 28 XRT treatments on January 05. He denies any pain in his chest. He reports feeling sweaty and anxious. For postradiation care he has been on 30 mg of prednisone daily and he took 20 mg today. He did report on the way here that he started to feel improved. He reports some trouble swallowing in the initial phase of swallowing but when food goes beyond the tongue there is no issue with pain or food getting stuck. The patient denies any recent colds, however, he has 2 young children who had had cold symptoms as well as his . The patient states his nose does feel somewhat stuffy and he does feel pressure in his ears. He otherwise denies any symptoms of nausea vomiting fevers chills diarrhea or other issues. In the ER he was noted to be hypertensive with a systolic pressure of 197 pulse 68, the patient was afebrile and saturating 98% on room air the entire time he was there. He was noted to not have any respiratory distress. Lungs were clear to auscultation and no stridor was heard. A chest x-ray revealed no active disease in the chest. An x-ray of the neck revealed no evidence of significant airway narrowing and a normal-appearing epiglottis. Lab work reveals a mild leukocytosis of 13,000 related to steroid use and is otherwise unremarkable. The patient received dexamethasone 10 mg IV 1 dose, 500 cc of normal saline, 1 mg of lorazepam IV and 1 neb treatment of racemic epi. He did not report dramatic improvement as he had in his prior ER visit 1 month ago, so Dr. Lanier was called from ENT to come in and take a look. Per Dr. Lanier's assessment at bedside the patient had significant amounts of mucus that was present but otherwise had normal-appearing structures. Recommendations were made as below and the patient was discharged home in stable condition. Past Medical/Surgical History Medical Problems: (1) Laryngeal mass Status: Acute Family History No pertinent family history Social History Smoking Status: Former Smoker Smokeless Tobacco Use: No Alcohol Use: none Drug Use: none Marital Status: Housing Status: lives with roommate Allergies Coded Allergies: Tramadol (Verified Allergy, Unknown, RESP. DEPRESSION, 01/21/18) Home Medications Fentanyl patch 25 mcg every 72 hours Oxycodone as needed for pain Ibuprofen 600 mg 3 times daily as needed pain Current Inpatient Medications See HPI for meds given in ER. Review of Systems At least 10 systems were reviewed and negative except as indicated in HPI Physical Exam Date Time Temp Pulse Resp B/P (MAP) Pulse Ox O2 Delivery O2 Flow Rate FiO2 02/21/18 18:35 67 24 154/92 98 Room Air 02/21/18 18:15 72 20 157/90 95 Room Air 02/21/18 17:41 69 02/21/18 17:30 68 24 178/92 97 Room Air 02/21/18 16:23 72 16 95 Room Air 02/21/18 16:15 73 19 183/90 93 Room Air 02/21/18 14:38 98 02/21/18 14:26 36.8 68 18 197/118 98 General Appearance: WD/WN, no apparent distress, + pertinent finding Head: normocephalic, atraumatic Eyes: normal inspection, PERRL (No stridor noted), sclerae normal ENT: normal ENT inspection, hearing grossly normal, TMs normal, pharynx normal Neck: supple, no adenopathy, trachea midline Respiratory/Chest: chest non-tender, lungs clear, normal breath sounds, no respiratory distress, no accessory muscle use Cardiovascular: regular rate, rhythm, no edema, no gallop, no JVD, no murmur, normal peripheral pulses Abdomen/GI: normal bowel sounds (Really tripped up today because to time leg tripped up 2 times a), non tender, soft Back: normal inspection Extremities/Musculoskelatal: normal inspection, no calf tenderness 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, no motor/sensory deficits, alert, normal mood/affect, oriented x 3 Skin: normal color, warm/dry, no rash Laboratory Results 02/21/18 15:25 Red Blood Count 4.92, Mean Corpuscular Volume 89.0, Mean Corpuscular Hemoglobin 29.7, Mean Corpuscular Hemoglobin Concent 33.3, Mean Platelet Volume 9.6, Neutrophils (%) (Auto) 89.4, Lymphocytes (%) (Auto) 2.4, Monocytes (%) (Auto) 7.0, Eosinophils (%) (Auto) 0.6, Basophils (%) (Auto) 0.1, Neutrophils # (Auto) 12.07, Lymphocytes # (Auto) 0.32, Monocytes # (Auto) 0.94, Eosinophils # (Auto) 0.08, Basophils # (Auto) 0.01 02/21/18 15:25 Test 02/21/18 15:25 White Blood Count 13.49 K/uL (4.8-10.8) Red Blood Count 4.92 M/uL (4.7-6.1) Hemoglobin 14.6 g/dL (14.0-18.0) Hematocrit 43.8 % (42-52) Mean Corpuscular Volume 89.0 fL (80-100) Mean Corpuscular Hemoglobin 29.7 pg (25-34) Mean Corpuscular Hemoglobin Concent 33.3 g/dl (32-36) Platelet Count 263 K/uL (130-400) Mean Platelet Volume 9.6 fL (7.4-10.4) Neutrophils (%) (Auto) 89.4 % Lymphocytes (%) (Auto) 2.4 % Monocytes (%) (Auto) 7.0 % Eosinophils (%) (Auto) 0.6 % Basophils (%) (Auto) 0.1 % Neutrophils # (Auto) 12.07 K/uL (1.4-6.5) Lymphocytes # (Auto) 0.32 K/uL (1.2-3.4) Monocytes # (Auto) 0.94 K/uL (0.11-0.59) Eosinophils # (Auto) 0.08 K/uL (0-0.5) Basophils # (Auto) 0.01 K/uL (0-0.2) RDW Standard Deviation 46.6 fL (36.4-46.3) RDW Coefficient of Variation 14.3 % (11.5-14.5) Immature Granulocyte % (Auto) 0.5 % Immature Granulocyte # (Auto) 0.07 K/uL (0.00-0.02) Anion Gap 7.0 mmol/L (3-11) Est Creatinine Clear Calc Drug Dose 129.0 ml/min Estimated GFR () 107.9 Estimated GFR (Non- 93.1 BUN/Creatinine Ratio 16.8 (10-20) Calcium Level 9.0 mg/dl (8.5-10.1) Last 24 Hours Test 02/21/18 15:25 White Blood Count 13.49 K/uL Red Blood Count 4.92 M/uL Hemoglobin 14.6 g/dL Hematocrit 43.8 % Mean Corpuscular Volume 89.0 fL Mean Corpuscular Hemoglobin 29.7 pg Mean Corpuscular Hemoglobin Concent 33.3 g/dl Platelet Count 263 K/uL Mean Platelet Volume 9.6 fL Neutrophils (%) (Auto) 89.4 % Lymphocytes (%) (Auto) 2.4 % Monocytes (%) (Auto) 7.0 % Eosinophils (%) (Auto) 0.6 % Basophils (%) (Auto) 0.1 % Neutrophils # (Auto) 12.07 K/uL Lymphocytes # (Auto) 0.32 K/uL Monocytes # (Auto) 0.94 K/uL Eosinophils # (Auto) 0.08 K/uL Basophils # (Auto) 0.01 K/uL RDW Standard Deviation 46.6 fL RDW Coefficient of Variation 14.3 % Immature Granulocyte % (Auto) 0.5 % Immature Granulocyte # (Auto) 0.07 K/uL Sodium Level 137 mmol/L Potassium Level mmol/L Chloride Level 103 mmol/L Carbon Dioxide Level 28 mmol/L Anion Gap 7.0 mmol/L Blood Urea Nitrogen 17 mg/dl Creatinine 1.00 mg/dl Est Creatinine Clear Calc Drug Dose 129.0 ml/min Estimated GFR () 107.9 Estimated GFR (Non- 93.1 BUN/Creatinine Ratio 16.8 Random Glucose 97 mg/dl Calcium Level 9.0 mg/dl Assessment & Plan 43-year-old male with laryngeal cancer presents to the ER with shortness of breath and feeling his airway is closing. 1. Dyspnea-the patient is not in respiratory distress, exhibits no stridor and is improved since recently receiving treatment in the ER. Underwent bedside laryngoscopic by Dr. Lanier revealing a mucositis with X copious mucus secretions. Recommendations were made for mucolytic as an outpatient, a cough suppressant to help him stop clearing secretions so much and continuation of oral steroids. The patient was sent home in stable condition 2. Laryngeal cancer-status post XRT treatment continue per ENT Thank you for this consult. DO Sid Montilla hospitalist Additional Copies To Tomy Clements M.D.
== END 2018-02-21 19:32 | disposition home or self-care (01) ==
LOC: C.EDB 14:23
DX: C32.9 Malignant neoplasm of larynx, unspecified (principal); R06.00 Dyspnea, unspecified; Z92.3 Personal history of irradiation; Z87.891 Personal history of nicotine dependence; Z88.5 Allergy status to narcotic agent; Z79.899 Other long term (current) drug therapy